=== PATIENT | female | born 2000 | race African-American/Black ===

== ENCOUNTER 2022-07-14 02:02 | Emergency (ER) | payer MEDICAID ==
[~2022-07-14] VITALS: Ht 172.7 cm; Wt 127.7 kg
[2022-07-14 02:05] VITALS: BP 134/89
== END 2022-07-14 04:58 | disposition left against medical advice (07) ==
LOC: ER 02:06
DX: R07.89 Other chest pain (principal); R42 Dizziness and giddiness; R06.02 Shortness of breath; Z53.21 Procedure and treatment not carried out due to patient leaving prior to being seen by health care provider
CPT/HCPCS: 93005